=== PATIENT | male | born 1970 | race Two or more races ===

== ENCOUNTER 2018-01-25 17:50 | Emergency (ER) | payer OTHER ==
[~2018-01-25] VITALS: Ht 172.7 cm; Wt 83.9 kg
[2018-01-25] MEDS ORDERED: Tetracaine 0.5% Opth 4ml Soln LEFT EYE ONE (18:15)
[2018-01-25] MEDS ORDERED: Fluorescein Strips LEFT EYE ONE (18:15)
--- NOTE | 2018-01-25 18:39 | Emergency Room Report ---
History of Present Illness General Chief Complaint: Eye Problems Source: Patient Present Illness HPI Pt. presents to the ED c/o Left eye redness, scratching sensation and increased tearing x 4 days. she reports appearance of blood in his eye. Patient states that injury occurred when he accidentally poked himself in either the Q-tip. Denies contact lens use. Is not up-to-date with tetanus. Denies Discharge,Loss of vision, Floaters, Flashing lights, Diplopia/blurry vision .He reports increased tearing. Allergies: Coded Allergies: No Known Allergies (Unverified , 01/25/18) Patient History Past Medical History: see triage record Past Surgical History: none Pertinent Family History: none Reviewed Nursing Documentation: PMH: Agreed; PSxH: Agreed Nursing Documentation-PMH Past Medical History: No Stated History Review of Systems All Other Systems: negative except mentioned in HPI Physical Exam Vital Signs Date Time Temp Pulse Resp B/P (MAP) Pulse Ox O2 Delivery O2 Flow Rate FiO2 01/25/18 17:59 97.9 66 16 122/82 97 Room Air Sp02 EP Interpretation: reviewed, normal General Appearance: no apparent distress, alert, GCS 15, non-toxic Head: normocephalic, atraumatic Eyes: left eye fluoroscene uptake - horizontal linear increased uptake in the 9 o'clock position of the left eye. , left eye photophobia, left eye other - subconjunctival hemorrhage; bilateral eye normal inspection, bilateral eye PERRL , bilateral eye EOMI, bilateral eye visual acuity - 20/30 ENT: hearing grossly normal, normal voice Neck: full range of motion Respiratory: lungs clear, normal breath sounds, speaking full sentences Cardiovascular #1: regular rate, rhythm Musculoskeletal: back normal, gait/station normal, normal range of motion, non- tender Neurologic: alert, oriented x3, responsive, motor strength/tone normal, sensory intact, normal gait, speech normal, grossly normal Psychiatric: judgement/insight normal Skin: normal color, no rash, warm/dry, well hydrated Medical Decision Making PA Attestation Dr. Elias is my supervising Physician whom patient management has been discussed with. Diagnostic Impression: Primary Impression: Subconjunctival hemorrhage of left eye Additional Impression: Corneal abrasion, left Qualified Codes: S05.02XA - Injury of conjunctiva and corneal abrasion without foreign body, left eye, initial encounter ER Course Pt. presents to the ED c/o Left eye pain, redness, scratching sensation and increased tearing x 4 days. she reports appearance of blood in his eye. Patient states that injury occurred when he accidentally poked himself in either the Q-tip. Denies contact lens use. Is not up-to-date with tetanus. Denies Discharge,Loss of vision, Floaters, Flashing lights, Diplopia/blurry vision . He reports increased tearing. Ddx considered but are not limited to: corneal abrasion, acute glaucoma, globe rupture, FB, Corneal Ulcer, conjunctivitis. Iridis Vital signs: are WNL, pt. is afebrile H&PE are most consistent with: subconjunctival hemorrhage in addition to possible corneal abrasion ORDERS: -Tetracaine and Fluorescein Stain of the Left eye: Increase fluorescein uptake in a linear fashion in the 9 o'clock position of the Left eye, there is no involvement of the iris or pupil. Negative Shilpi sign. Pt. had positive relief of pain with tetracaine drops. there was negative evidence of Fb, deep ulcer, or rupture. + for subconjunctival hemorrhage ED INTERVENTIONS: -Tdap IM DISCHARGE: At this time pt. is stable for d/c to home. Will provide printed patient care instructions, and any necessary prescriptions. Care plan and follow up instructions have been discussed with the patient prior to discharge. . Last Vital Signs Date Time Temp Pulse Resp B/P (MAP) Pulse Ox O2 Delivery O2 Flow Rate FiO2 01/25/18 17:59 97.9 66 16 122/82 97 Room Air Disposition: HOME, SELF-CARE Condition: Stable Scripts Ofloxacin (OCUFLOX) 5 Ml Drops 2 DROP OP BID, #5 ML Prov: Lela Shepherd 01/25/18 Patient Instructions: Corneal Abrasion, [id number], Subconjunctival Hemorrhage Additional Instructions: Take medications as directed. Follow up with a Quoter in 3 days, even if your symptoms have resolved. --Please review list of primary care clinics, if you do not already have a primary care provider Return sooner to ED if new symptoms occur, or current symptoms become worse. - Please note that this Emergency Department Report was dictated using [employer] technology software, occasionally this can lead to erroneous entry secondary to interpretation by the dictation equipment. Lela Shepherd Jan 25, 2018 18:39
[2018-01-25] MEDS ORDERED: OCUFLOX5 ML OP (18:40)
[2018-01-25] MEDS ORDERED: Tetanus/Diptheria/Pertussis Vaccine 0.5ml Syr IM ONE (18:45)
[2018-01-25 18:50] VITALS: BP 125/79
[2018-01-25 18:51] VITALS: BP 122/82
== END 2018-01-25 19:00 | disposition home or self-care (01) ==
LOC: EMR 18:51
DX: H11.32 Conjunctival hemorrhage, left eye (principal); S05.02XA Injury of conjunctiva and corneal abrasion without foreign body, left eye, initial encounter; W22.8XXA Striking against or struck by other objects, initial encounter; Y92.9 Unspecified place or not applicable; Z23 Encounter for immunization
CPT/HCPCS: 90471; 90715; 99283